=== PATIENT | female | born 1995 | race Caucasian/White ===

== ENCOUNTER 2021-10-10 07:59 | Inpatient (IN) ==
[2021-10-10] MEDS ORDERED: OXYTOCIN 30 UNITS/500 ML BAG IV PRN ×2 (08:37)
[2021-10-10] MEDS ORDERED: PENICILLIN G POTASSIUM 6 MU in DEXTROSE 5% 250 ML IV STA (08:41)
[2021-10-10 08:56] LABS: Hematocrit (blood only) 32.4 % (34.1-44.9); Hemoglobin 10.7 g/dl (12.0-16.0); Mean Corpuscular Hemoglobin 28.8 pg (25.0-34.0); Mean Corpuscular Volume 87.3 fL (80.0-100.0); Mean Platelet Volume 10.1 fL (9.4-12.3); Platelet Count 354 K/uL (130-400); RDW Coefficient of Variation 13.4 % (11.5-14.5); Red Blood Count 3.71 M/uL (3.93-5.22)
[2021-10-10] MEDS: LACTATED RINGER'S 1,000 ML IV PRN ×3 (09:33→19:33)
[2021-10-10] MEDS: PENICILLIN G POTASSIUM 3 MU in DEXTROSE 5% 100 ML IV PRN ×2 (14:02→17:55)
--- NOTE | 2021-10-10 15:18 | History & Physical Report ---
Date of Service October 10, 2021 Assessment & Plan (1) IUGR (intrauterine growth restriction) affecting care of mother: Plan: Admit. EFM/toco. Labs. IV fluids. COVID swab per protocol. PCN for GBS. Admission and Anticipated Discharge Date Admission Date: October 10, 2021 History of Present Illness Chief Complaint: IOL Primary Care Provider: SEGUNDO PCP 26yo @ 37 04/08, here for IOL. COVID POSITIVE 04/22/21 (SX STARTED 04/18/21) IUGR *Twice weekly NST/DVP@Dx *Weeklyl doppler@Dx--elevated 75-90% at 33 US *Growth US Q4wk @Dx *Deliver @39wks (unless abnml flow)--10/10 with alex[facility]ru. 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 normal no recs for MFM recs to take ASA 81mg - will start GBS Positive *Treat in labor Allergies Allergy/AdvReac Type Severity Reaction Status Date / Time No Known Allergies Allergy Verified 10/07/21 14:24 Home Medications Medication Instructions Recorded Confirmed Type prenat.vits,jesus,jaj-adpv-haisp 1 tab PO DAILY 03/29/21 10/10/21 History aspirin 81 mg tablet 81 mg PO DAILY 10/10/21 10/10/21 History Patient History Medical History Chicken pox COVID-19 Ectopic Elevated antinuclear antibody (FREDO) level Infertility Iron deficiency anemia MTHFR gene mutation Ovarian anomaly Use of leuprolide acetate (Lupron) Surgical History H/O laparoscopy Family History Father Diabetes Denies family history of Ovarian cancer Breast cancer Lung cancer Colorectal cancer Hypertension Social History (Updated 10/10/21 @ 08:29 by Maru Sears RN) Smoking Status: Never smoker Hx Alcohol Use: No Hx Substance Use: No Preferred Language: Ukrainian Communication Ability: Effective Hearing Ability: Normal Manager Purchasing Required: No Beliefs That Will Affect Care: None marital status: marital status details: Yarely Mann (29) [phone] Current Living Situation: Spouse Current Living Situation Comment: and 2 dogs current occupational status: employed current occupation: [employer] Other Information That Helps Us Care for You: No Feels Safe at Home: Yes Safety Concerns: Feels Safe At This Time Gender Identity: Female Assistive Devices: Glasses Review of Systems All systems reviewed & are unremarkable except as noted in HPI & below Physical Exam Constitutional: WD/WN, vitals as above Respiratory: normal respiratory effort, lungs clear to auscultation no respiratory distress Cardiovascular: Rate/Rhythm: regular rate and regular rhythm Gastrointestinal (Abdomen): Inspection/Auscultation: abdomen normal to inspection Percussion/Palpation: abdomen soft; abdomen nontender Gravid. No s/s chorio or abruption. Skin: no rashes, warm and dry Psychiatric: A+Ox3, euthymic affect Results & Data ([facility]) Vital Signs (Past 12 Hours) Vital Signs Temp Pulse Resp BP 10/10/21 14:56 75 129/84 10/10/21 13:57 74 128/80 10/10/21 12:56 81 116/71 10/10/21 12:30 36.9 C 10/10/21 11:56 83 138/87 10/10/21 10:55 81 141/84 H 10/10/21 10:40 80 142/86 H 10/10/21 10:25 79 119/75 10/10/21 10:11 79 119/75 10/10/21 09:55 85 114/56 L 10/10/21 09:40 78 20 132/69 10/10/21 09:06 86 133/78 10/10/21 09:01 36.8 C 10/10/21 08:09 83 151/85 H Monitoring External Monitor FHT Cat 1 Tocodynamometer occasional Coding Level of Care Code None Diagnoses IUGR (intrauterine growth restriction) affecting care of mother O36.5990
--- NOTE | 2021-10-10 15:20 | Labor Progress Brief Note ---
Date of Service October 10, 2021 Comfortable. FHT Cat 1 [place] Q 2-4 SVE 4-5/80/-1 AROM clear fluid Continue pitocin. OK for epidural if she desires. Assessment & Plan Admission and Anticipated Discharge Date Admission Date: October 10, 2021 Results & Data ([facility]) Vital Signs (Past 12 Hours) Vital Signs Temp Pulse Resp BP 10/10/21 14:56 75 129/84 10/10/21 13:57 74 128/80 10/10/21 12:56 81 116/71 10/10/21 12:30 36.9 C 10/10/21 11:56 83 138/87 10/10/21 10:55 81 141/84 H 10/10/21 10:40 80 142/86 H 10/10/21 10:25 79 119/75 10/10/21 10:11 79 119/75 10/10/21 09:55 85 114/56 L 10/10/21 09:40 78 20 132/69 10/10/21 09:06 86 133/78 10/10/21 09:01 36.8 C 10/10/21 08:09 83 151/85 H Coding Level of Care Code None
[2021-10-10] MEDS ORDERED: BUPIVACAINE 0.25% 30 ML VIAL ONE ×2 (16:05→22:57)
[2021-10-10] MEDS ORDERED: SODIUM CHLORIDE 0.9% INJ 10 ML VIAL ONE ×2 (16:05→22:57)
[2021-10-10] MEDS ORDERED: LIDOCAINE 2%/EPINEPHRINE 1:200,000 20 ML SDV ONE (16:05)
[2021-10-10] MEDS ORDERED: ePHEDrine sulfate 50 MG/ML AMP ONE (16:05)
[2021-10-10] MEDS ORDERED: fentaNYL citrate 100 MCG/2 ML VIAL ONE (16:05)
[2021-10-10] MEDS ORDERED: fentaNYL 2MCG/ML ROPIVACAINE 1.25MG/ML 100 ML BAG EPI ONE (16:06)
[2021-10-10] MEDS ORDERED: fentaNYL 2MCG/ML ROPIVACAINE 1.25MG/ML 100 ML BAG EPI PRN (16:28)
[2021-10-10] MEDS ORDERED: ONDANSETRON INJ 2 MG/ML 2 ML VIAL IV PRN (16:28)
[2021-10-10] MEDS ORDERED: NALBUPHINE HCL INJ 10 MG/ML AMP IV PRN (16:28)
[2021-10-10] MEDS ORDERED: NALOXONE HCL 0.4 MG/1 ML VIAL/CARP IV PRN (16:28)
[2021-10-10] MEDS ORDERED: ePHEDrine sulfate 50 MG/ML AMP IV PRN (16:28)
[2021-10-10] MEDS ORDERED: diphenhydrAMINE 50 MG/ML VIAL IV PRN (16:28)
[2021-10-10] MEDS ORDERED: NALOXONE HCL 1 MG in SODIUM CHLORIDE 0.9% 1000ML 1,000 ML IV PRN (16:28)
--- NOTE | 2021-10-10 16:32 | Anesthesiology Consultation ---
Date of Service October 10, 2021 Assessment & Plan Chart Review Chart Review: Patient NOT seen in Pre Admission Testing and Acceptable Risk for Labor Epidural Consults Requested none ASA ASA3 Proposed Anesthesia Anesthesia Type: Labor Epidural and CSE Risk / Benefits Reviewed With: PT / POA / Parent / Guardian, Accepts Plan and Informed Consent Obtained History Height/Weight Height: 5 ft 5 in Weight: 114.759 kg Allergies Allergy/AdvReac Type Severity Reaction Status Date / Time No Known Allergies Allergy Verified 10/07/21 14:24 Medications Home Medications Medication Instructions Recorded Confirmed Last Taken prenat.vits,jesus,xzo-rgqv-nezvt 1 tab PO DAILY 03/29/21 10/10/21 10/10/21 06:00 aspirin 81 mg tablet 81 mg PO DAILY 10/10/21 10/10/21 10/10/21 06:00 Active Medications Generic Name Dose Route Start Last Admin Trade Name Freq PRN Reason Stop Dose Admin Oxytocin 30 units in 500 mls @ 20 mls/hr 10/10/21 08:37 10/10/21 14:30 Pitocin IV 10/12/21 08:36 1.2 units/hr .Q24H PRN 20 mls/hr Labor Induction/Augmentation Titration Protocol 1.2 UNITS/HR Lactated Ringer's 1,000 mls @ 125 mls/hr 10/10/21 08:37 10/10/21 16:01 Lr IV 10/12/21 08:36 999 mls/hr .Q8H PRN Infusion L&D Protocol Protocol Penicillin G Potassium 3 mu/ 106 mls @ 100 mls/hr 10/10/21 11:37 10/10/21 14:02 Dextrose IV 10/20/21 11:36 100 mls/hr Q4H PRN Administration GBS(+) Until Delivery NPO Date Last Intake of Fluids: 10/10/21 Time Last Intake of Fluids: 15:00 Date Last Intake of Solids: 10/10/21 Time Last Intake of Solids: 09:00 Past Medical History Medical History Chicken pox COVID-19 Ectopic Elevated antinuclear antibody (FREDO) level Medically unexplained inflammation Infertility Iron deficiency anemia MTHFR gene mutation Obesity Ovarian anomaly Ovaries do not produce progesterone Use of leuprolide acetate (Lupron) Exercise / Class Metabolic Activity II 4-5 Yardwork/Stairs/Walk up hill Past Family History Family History Father Diabetes DM type 2 Denies family history of Ovarian cancer Breast cancer Lung cancer Colorectal cancer Hypertension Past Surgical History Surgical History H/O laparoscopy to remove a Past Anesthesia History No Hx of Anesthesia Complications and No Family Hx of Anesthesia Complications History of PONV No Hx of PONV and No Hx of Motion Sickness Social History Smoking Status: Never smoker Hx Alcohol Use: No Hx Substance Use: No substance use type: does not use Review of Systems no chest pain or sob Physical Exam Vital Signs Last Vital Signs Temp 36.7 C 10/10/21 16:26 Pulse 74 10/10/21 16:25 Resp 20 10/10/21 16:26 BP 143/97 H 10/10/21 15:56 Pulse Ox 100 10/10/21 16:25 Constitutional + obese ENMT Mouth: no TMJ abnormality Thyromental Distance: > or= 3.5 Finger Breadths Mallampati Class: II Neck normal visual inspection Respiratory normal respiratory effort Auscultation: lungs clear to auscultation bilaterally Cardiovascular Rate/Rhythm: regular rate and regular rhythm Musculoskeletal Spine: normal cervical ROM Neurologic moves all extremities Psychiatric Orientation: alert and oriented x 3 Testing Laboratory Results 10/10/21 08:46 Blood Type A Positive 10/10/21 08:46 Antibody Screen NEGATIVE 10/10/21 08:46
--- NOTE | 2021-10-10 19:13 | Labor Progress Brief Note ---
Date of Service October 10, 2021 Subjective Called to bedside for FHT decels. Now with recurrent FHT decels, to 90s with ctx. Recovery to baseline moderate variability between. Pitocin turned off, O2 applied, pt repositioned. IV fluids bolus. Cervix exam 8/100/0 (last exam 2 h ago was 5-6cm). Discussed resuscitative measures with patient, if not successful will need to proceed to delivery via . Assessment & Plan Admission and Anticipated Discharge Date Admission Date: October 10, 2021 Results & Data ([facility]) Vital Signs (Past 12 Hours) Vital Signs Temp Pulse Resp BP Pulse Ox 10/10/21 19:05 89 100 10/10/21 19:00 87 100 10/10/21 18:55 99 H 99 10/10/21 18:51 75 125/66 10/10/21 18:50 80 98 10/10/21 18:45 73 98 10/10/21 18:40 81 97 10/10/21 18:37 73 133/70 10/10/21 18:35 78 97 10/10/21 18:30 37.4 C 73 20 98 10/10/21 18:25 74 98 10/10/21 18:23 71 130/70 10/10/21 18:20 94 H 100 10/10/21 18:15 85 99 10/10/21 18:10 79 98 10/10/21 18:07 72 121/74 10/10/21 18:05 82 98 10/10/21 18:00 71 99 10/10/21 17:55 69 98 10/10/21 17:51 66 125/75 10/10/21 17:50 80 100 10/10/21 17:45 71 100 10/10/21 17:40 80 100 10/10/21 17:36 70 131/77 10/10/21 17:35 71 16 98 10/10/21 17:30 64 100 10/10/21 17:25 69 98 10/10/21 17:23 76 125/74 10/10/21 17:20 37 C 74 20 100 10/10/21 17:15 63 100 10/10/21 17:10 62 100 10/10/21 17:06 86 116/59 L 10/10/21 17:05 65 100 10/10/21 17:04 68 108/60 10/10/21 17:02 76 115/66 10/10/21 17:01 64 112/59 L 10/10/21 17:00 65 100 10/10/21 16:58 77 127/62 10/10/21 16:56 75 120/80 10/10/21 16:55 70 100 10/10/21 16:54 77 131/60 10/10/21 16:51 93 H 131/71 10/10/21 16:50 89 100 10/10/21 16:45 90 100 10/10/21 16:40 88 100 10/10/21 16:35 81 100 10/10/21 16:30 73 100 10/10/21 16:26 36.7 C 20 10/10/21 16:25 74 100 10/10/21 15:56 81 143/97 H 10/10/21 14:56 75 129/84 10/10/21 13:57 74 128/80 10/10/21 12:56 81 116/71 10/10/21 12:30 36.9 C 20 10/10/21 11:56 83 138/87 10/10/21 10:55 81 141/84 H 10/10/21 10:40 80 142/86 H 10/10/21 10:25 79 119/75 10/10/21 10:11 79 119/75 10/10/21 09:55 85 114/56 L 10/10/21 09:40 78 20 132/69 10/10/21 09:06 86 133/78 10/10/21 09:01 36.8 C 10/10/21 08:09 83 151/85 H Coding Level of Care Code None
[2021-10-10] MEDS ORDERED: NURSING L&D Epidural Breakthrough Pain Update ONE (22:08)
--- NOTE | 2021-10-10 22:26 | Labor Progress Brief Note ---
Date of Service October 10, 2021 Subjective Feeling more pressure/discomfort. FHT Cat 1 [place] Q 2-4 SVE anterior lip/100/+2 Will redose epidural, continue to reposition. Assessment & Plan Admission and Anticipated Discharge Date Admission Date: October 10, 2021 Results & Data ([facility]) Vital Signs (Past 12 Hours) Vital Signs Temp Pulse Resp BP Pulse Ox 10/10/21 22:21 122 H 91 10/10/21 22:20 96 H 98 10/10/21 22:15 101 H 99 10/10/21 22:10 92 H 98 10/10/21 22:06 100 H 141/84 H 10/10/21 22:05 108 H 99 10/10/21 22:00 102 H 100 10/10/21 21:57 88 94 10/10/21 21:55 88 98 10/10/21 21:51 88 114/56 L 10/10/21 21:50 81 98 10/10/21 21:45 97 H 97 10/10/21 21:40 97 H 97 10/10/21 21:36 97 H 119/72 10/10/21 21:35 99 H 97 10/10/21 21:31 18 10/10/21 21:30 100 H 98 10/10/21 21:25 101 H 97 10/10/21 21:21 96 H 129/72 10/10/21 21:20 99 H 97 10/10/21 21:15 101 H 96 10/10/21 21:10 100 H 97 10/10/21 21:07 90 117/67 10/10/21 21:05 96 H 97 10/10/21 21:01 36.9 C 18 10/10/21 21:00 98 H 97 10/10/21 20:55 93 H 98 10/10/21 20:51 88 120/67 10/10/21 20:50 90 97 10/10/21 20:45 88 98 10/10/21 20:43 18 10/10/21 20:40 95 H 98 10/10/21 20:37 94 H 127/73 10/10/21 20:35 108 H 99 10/10/21 20:30 90 97 10/10/21 20:25 90 97 10/10/21 20:21 88 122/77 10/10/21 20:20 89 97 10/10/21 20:15 92 H 98 10/10/21 20:10 87 97 10/10/21 20:07 97 H 121/76 10/10/21 20:05 89 98 10/10/21 20:00 90 97 10/10/21 19:55 84 96 10/10/21 19:52 83 124/65 10/10/21 19:50 91 H 96 10/10/21 19:45 91 H 97 10/10/21 19:40 89 97 10/10/21 19:36 88 97/60 L 10/10/21 19:35 84 97 10/10/21 19:30 88 100 10/10/21 19:25 89 100 10/10/21 19:21 96 H 100/56 L 10/10/21 19:20 92 H 100 10/10/21 19:15 86 100 10/10/21 19:10 85 100 10/10/21 19:07 80 109/58 L 10/10/21 19:05 89 100 10/10/21 19:02 36.9 C 18 10/10/21 19:00 87 100 10/10/21 18:55 99 H 99 10/10/21 18:51 75 125/66 10/10/21 18:50 80 98 10/10/21 18:45 73 98 10/10/21 18:40 81 97 10/10/21 18:37 73 133/70 10/10/21 18:35 78 97 10/10/21 18:30 37.4 C 73 20 98 10/10/21 18:25 74 98 10/10/21 18:23 71 130/70 10/10/21 18:20 94 H 100 10/10/21 18:15 85 99 10/10/21 18:10 79 98 10/10/21 18:07 72 121/74 10/10/21 18:05 82 98 10/10/21 18:00 71 99 10/10/21 17:55 69 98 10/10/21 17:51 66 125/75 10/10/21 17:50 80 100 10/10/21 17:45 71 100 10/10/21 17:40 80 100 10/10/21 17:36 70 131/77 10/10/21 17:35 71 16 98 10/10/21 17:30 64 100 10/10/21 17:25 69 98 10/10/21 17:23 76 125/74 10/10/21 17:20 37 C 74 20 100 10/10/21 17:15 63 100 10/10/21 17:10 62 100 10/10/21 17:06 86 116/59 L 10/10/21 17:05 65 100 10/10/21 17:04 68 108/60 10/10/21 17:02 76 115/66 10/10/21 17:01 64 112/59 L 10/10/21 17:00 65 100 10/10/21 16:58 77 127/62 10/10/21 16:56 75 120/80 10/10/21 16:55 70 100 10/10/21 16:54 77 131/60 10/10/21 16:51 93 H 131/71 10/10/21 16:50 89 100 10/10/21 16:45 90 100 10/10/21 16:40 88 100 10/10/21 16:35 81 100 10/10/21 16:30 73 100 10/10/21 16:26 36.7 C 20 10/10/21 16:25 74 100 10/10/21 15:56 81 143/97 H 10/10/21 14:56 75 129/84 10/10/21 13:57 74 128/80 10/10/21 12:56 81 116/71 10/10/21 12:30 36.9 C 20 10/10/21 11:56 83 138/87 10/10/21 10:55 81 141/84 H 10/10/21 10:40 80 142/86 H Coding Level of Care Code None
[2021-10-11] MEDS: PENICILLIN G POTASSIUM 3 MU in DEXTROSE 5% 100 ML IV PRN (00:15)
--- NOTE | 2021-10-11 00:19 | Labor Progress Brief Note ---
Date of Service October 11, 2021 Subjective Beginning to feel pressure. FHT Cat 1, [place] Q 2-3 SVE complete/100 per RN exam Will start pushing. Assessment & Plan Admission and Anticipated Discharge Date Admission Date: October 10, 2021 Results & Data ([facility]) Vital Signs (Past 12 Hours) Vital Signs Temp Pulse Resp BP Pulse Ox 10/11/21 00:15 91 H 97 10/11/21 00:10 92 H 98 10/11/21 00:06 93 H 116/68 10/11/21 00:05 90 100 10/11/21 00:00 97 H 98 10/10/21 23:55 89 98 10/10/21 23:51 92 H 122/69 10/10/21 23:50 92 H 98 10/10/21 23:45 93 H 100 10/10/21 23:40 106 H 100 10/10/21 23:36 157 H 136/64 10/10/21 23:35 100 H 100 10/10/21 23:32 36.9 C 18 10/10/21 23:30 92 H 97 10/10/21 23:25 95 H 96 10/10/21 23:21 94 H 125/84 10/10/21 23:20 88 97 10/10/21 23:15 84 96 10/10/21 23:10 107 H 99 10/10/21 23:06 111 H 124/92 10/10/21 23:05 101 H 98 10/10/21 23:00 108 H 96 10/10/21 22:55 101 H 98 10/10/21 22:51 103 H 119/88 10/10/21 22:50 101 H 98 10/10/21 22:45 90 96 10/10/21 22:40 98 H 97 10/10/21 22:37 86 133/78 10/10/21 22:35 93 H 97 10/10/21 22:30 91 H 98 10/10/21 22:25 95 H 98 10/10/21 22:21 122 H 91 10/10/21 22:20 96 H 98 10/10/21 22:15 101 H 99 10/10/21 22:10 92 H 98 10/10/21 22:06 100 H 141/84 H 10/10/21 22:05 108 H 99 10/10/21 22:00 102 H 100 10/10/21 21:57 88 94 10/10/21 21:55 88 98 10/10/21 21:51 88 114/56 L 10/10/21 21:50 81 98 10/10/21 21:45 97 H 97 10/10/21 21:40 97 H 97 10/10/21 21:36 97 H 119/72 10/10/21 21:35 99 H 97 10/10/21 21:31 18 10/10/21 21:30 100 H 98 10/10/21 21:25 101 H 97 10/10/21 21:21 96 H 129/72 10/10/21 21:20 99 H 97 10/10/21 21:15 101 H 96 10/10/21 21:10 100 H 97 10/10/21 21:07 90 117/67 10/10/21 21:05 96 H 97 10/10/21 21:01 36.9 C 18 10/10/21 21:00 98 H 97 10/10/21 20:55 93 H 98 10/10/21 20:51 88 120/67 10/10/21 20:50 90 97 10/10/21 20:45 88 98 10/10/21 20:43 18 10/10/21 20:40 95 H 98 10/10/21 20:37 94 H 127/73 10/10/21 20:35 108 H 99 10/10/21 20:30 90 97 10/10/21 20:25 90 97 10/10/21 20:21 88 122/77 10/10/21 20:20 89 97 10/10/21 20:15 92 H 98 10/10/21 20:10 87 97 10/10/21 20:07 97 H 121/76 10/10/21 20:05 89 98 10/10/21 20:00 90 97 10/10/21 19:55 84 96 10/10/21 19:52 83 124/65 10/10/21 19:50 91 H 96 10/10/21 19:45 91 H 97 10/10/21 19:40 89 97 10/10/21 19:36 88 97/60 L 10/10/21 19:35 84 97 10/10/21 19:30 88 100 10/10/21 19:25 89 100 10/10/21 19:21 96 H 100/56 L 10/10/21 19:20 92 H 100 10/10/21 19:15 86 100 10/10/21 19:10 85 100 10/10/21 19:07 80 109/58 L 10/10/21 19:05 89 100 10/10/21 19:02 36.9 C 18 10/10/21 19:00 87 100 10/10/21 18:55 99 H 99 10/10/21 18:51 75 125/66 10/10/21 18:50 80 98 10/10/21 18:45 73 98 10/10/21 18:40 81 97 10/10/21 18:37 73 133/70 10/10/21 18:35 78 97 10/10/21 18:30 37.4 C 73 20 98 10/10/21 18:25 74 98 10/10/21 18:23 71 130/70 10/10/21 18:20 94 H 100 10/10/21 18:15 85 99 10/10/21 18:10 79 98 10/10/21 18:07 72 121/74 10/10/21 18:05 82 98 10/10/21 18:00 71 99 10/10/21 17:55 69 98 10/10/21 17:51 66 125/75 10/10/21 17:50 80 100 10/10/21 17:45 71 100 10/10/21 17:40 80 100 10/10/21 17:36 70 131/77 10/10/21 17:35 71 16 98 10/10/21 17:30 64 100 10/10/21 17:25 69 98 10/10/21 17:23 76 125/74 10/10/21 17:20 37 C 74 20 100 10/10/21 17:15 63 100 10/10/21 17:10 62 100 10/10/21 17:06 86 116/59 L 10/10/21 17:05 65 100 10/10/21 17:04 68 108/60 10/10/21 17:02 76 115/66 10/10/21 17:01 64 112/59 L 10/10/21 17:00 65 100 10/10/21 16:58 77 127/62 10/10/21 16:56 75 120/80 10/10/21 16:55 70 100 10/10/21 16:54 77 131/60 10/10/21 16:51 93 H 131/71 10/10/21 16:50 89 100 10/10/21 16:45 90 100 10/10/21 16:40 88 100 10/10/21 16:35 81 100 10/10/21 16:30 73 100 10/10/21 16:26 36.7 C 20 10/10/21 16:25 74 100 10/10/21 15:56 81 143/97 H 10/10/21 14:56 75 129/84 10/10/21 13:57 74 128/80 10/10/21 12:56 81 116/71 10/10/21 12:30 36.9 C 20 Coding Level of Care Code None
--- NOTE | 2021-10-11 02:32 | Delivery Summary ---
Vaginal Delivery Summary Date of Service October 11, 2021 Vaginal Delivery Summary and 2nd Degree LAC Vaginal Delivery Summary: Pre-delivery diagnoses: 26yo @ 39 2/7, IUGR, IVF conception, GBS+, MTHFR, FREDO+ Post-delivery diagnoses: same Procedure: spontaneous vaginal delivery Surgeon: Ana Maria Quevedo DO Complications: none Findings: Viable female . Apgars: 8/9. Weight pending, please see nursery records. Estimated blood loss: 300ml Description of delivery: The patient progressed to complete with epidural anesthesia. She then began to push. She spontaneously vaginally delivered a viable from the cephalic presentation. The head delivered in SHARON position. No nuchal. The anterior shoulder delivered, followed by the posterior shoulder, followed by the body. The baby was placed on mother's abdomen and a spontaneous cry was heard. Delayed cord clamping was employed, and the cord was doubly clamped and cut. Cord blood was obtained. The placenta was delivered spontaneously intact with a 3-vessel cord. The uterus and vagina were swept of clots and debris. IV pitocin was given. The uterus became firm. The cervix, vagina, and perineum were inspected and a 2nd degree perineal laceration with bilateral sulcal tears noted and repaired with 3-0 vicryl in standard fashion. Excellent hemostasis was observed. The mother and baby are recovering in stable and good condition in the room. Sponge, needle and instrument counts were correct x 2. Ana Maria Quevedo DO [facility] Vaginal Delivery Charge Vaginal Delivery Codes: 03938 global code for the antepartum, delivery, and post- Delivery Type Details: and 2nd Degree LAC
[2021-10-11] MEDS ORDERED: BENZOCAINE 20% AER SPR 82.5 GM CAN EXT PRN (02:41)
[2021-10-11] MEDS ORDERED: ACETAMINOPHEN 325 MG TAB PO PRN (02:41)
[2021-10-11] MEDS ORDERED: DIPHTHERIA/TETANUS/PERTUSSIS 0.5 ML SYR/VIAL IM ONE (02:41)
[2021-10-11] MEDS ORDERED: HYDROCORTISONE ACETATE 25 MG SUPP PR PRN (02:41)
[2021-10-11] MEDS ORDERED: OXYTOCIN 30 UNITS/500 ML BAG IV PRN (02:41)
[2021-10-11] MEDS ORDERED: oxyCODONE/ACETAMINOPHEN 5mg/325mg TAB PO PRN (02:41)
[2021-10-11] MEDS: IBUPROFEN 600 MG TAB PO PRN ×3 (04:02→20:41)
--- NOTE | 2021-10-11 05:13 | Obstetrical Progress Note ---
Date of Service <Geneva Reddy DO - Last Filed: 10/11/21 06:18> October 11, 2021 Assessment & Plan <Geneva Reddy DO - Last Filed: 10/11/21 06:18> (1) Status post vaginal delivery: continue OOB, ambulation, diet as tolerated <Ana Maria Bjorn Quevedo, DO - Last Filed: 10/11/21 07:54> (1) Status post vaginal delivery: Subjective <Geneva Reddy, DO - Last Filed: 10/11/21 06:18> Malou is a 26 y/o female who is now PPD #0 following spontaneous vaginal delivery at 39 2/7. Reports feeling well overall this morning. Mild abdominal cramping & 5/10 pain well managed on analgesics. Voiding. Tolerating meals overnight and able to ambulate some. Is passing gas,but no bowel movements. Some persistent lochia with some improvement this morning. Breast/Bottle feeding. Review of Systems Denies fever, chills, sweats Denies shortness of breath, difficulty breathing, chest pain, palpitations, chest pressure. Denies breast pain. Denies dysuria. Denies headache or changes in vision. Physical Exam <Geneva Reddy DO - Last Filed: 10/11/21 06:18> General: Alert, oriented. No acute distress. Cardiac: Regular rate and rhythm, no murmurs/rubs/gallops. Respiratory: Clear to auscultation bilaterally a/p, no wheezes/rales/rhonchi. No increased work of breathing. Symmetrical chest rise. No respiratory distress. Abdomen: Soft, nontender, nondistended. Bowel sounds present. Uterus: Uterine fundus firm. Lower Extremities: No lower extremity edema or swelling. No deep calf pain. Cielo's negative bilaterally. Results & Data ([facility]) <Geneva Reddy DO - Last Filed: 10/11/21 06:18> Vital Signs (Past 12 Hours) Vital Signs Temp Pulse Resp BP Pulse Ox 10/11/21 04:30 93 H 18 110/64 10/11/21 04:14 93 H 114/71 10/11/21 03:59 96 H 120/73 10/11/21 03:45 88 126/75 10/11/21 03:30 18 10/11/21 03:29 106 H 110/62 10/11/21 03:15 37.1 C 18 10/11/21 03:14 89 108/58 L 10/11/21 03:00 18 10/11/21 02:59 101 H 118/68 10/11/21 02:45 88 18 123/72 10/11/21 02:30 36.8 C 18 10/11/21 02:29 102 H 146/86 H 10/11/21 02:22 102 H 115/62 10/11/21 02:20 95 H 96 10/11/21 02:15 107 H 98 10/11/21 02:10 105 H 98 10/11/21 02:05 151 H 96 10/11/21 02:00 110 H 99 10/11/21 01:55 100 H 98 10/11/21 01:51 83 113/56 L 10/11/21 01:50 86 98 10/11/21 01:49 106 H 94 10/11/21 01:45 100 H 99 10/11/21 01:42 123 H 93 10/11/21 01:40 101 H 97 10/11/21 01:37 96 H 123/63 10/11/21 01:35 97 H 97 10/11/21 01:30 36.8 C 97 H 18 96 10/11/21 01:25 91 H 94 10/11/21 01:24 90 94 10/11/21 01:21 93 H 121/75 10/11/21 01:20 99 H 97 10/11/21 01:15 90 95 10/11/21 01:10 95 H 97 10/11/21 01:06 90 116/74 10/11/21 01:05 94 H 97 10/11/21 01:00 91 H 98 10/11/21 00:55 95 H 18 98 10/11/21 00:51 100 H 112/66 10/11/21 00:50 105 H 98 10/11/21 00:45 92 H 99 10/11/21 00:40 112 H 100 10/11/21 00:36 98 H 122/77 10/11/21 00:35 102 H 99 10/11/21 00:30 106 H 99 10/11/21 00:25 103 H 97 10/11/21 00:21 99 H 120/76 10/11/21 00:20 88 97 10/11/21 00:15 91 H 97 10/11/21 00:10 92 H 98 10/11/21 00:06 93 H 116/68 10/11/21 00:05 90 100 10/11/21 00:00 97 H 98 10/10/21 23:55 89 98 10/10/21 23:51 92 H 122/69 10/10/21 23:50 92 H 98 10/10/21 23:45 93 H 100 10/10/21 23:40 106 H 100 10/10/21 23:36 157 H 136/64 10/10/21 23:35 100 H 100 10/10/21 23:32 36.9 C 18 10/10/21 23:30 92 H 97 10/10/21 23:25 95 H 96 10/10/21 23:21 94 H 125/84 10/10/21 23:20 88 97 10/10/21 23:15 84 96 10/10/21 23:10 107 H 99 10/10/21 23:06 111 H 124/92 10/10/21 23:05 101 H 98 10/10/21 23:00 108 H 96 10/10/21 22:55 101 H 98 10/10/21 22:51 103 H 119/88 10/10/21 22:50 101 H 98 10/10/21 22:45 90 96 10/10/21 22:40 98 H 97 10/10/21 22:37 86 133/78 10/10/21 22:35 93 H 97 10/10/21 22:30 91 H 98 10/10/21 22:25 95 H 98 10/10/21 22:21 122 H 91 10/10/21 22:20 96 H 98 10/10/21 22:15 101 H 99 10/10/21 22:10 92 H 98 10/10/21 22:06 100 H 141/84 H 10/10/21 22:05 108 H 99 10/10/21 22:00 102 H 100 10/10/21 21:57 88 94 10/10/21 21:55 88 98 10/10/21 21:51 88 114/56 L 10/10/21 21:50 81 98 10/10/21 21:45 97 H 97 10/10/21 21:40 97 H 97 10/10/21 21:36 97 H 119/72 10/10/21 21:35 99 H 97 10/10/21 21:31 18 10/10/21 21:30 100 H 98 10/10/21 21:25 101 H 97 10/10/21 21:21 96 H 129/72 10/10/21 21:20 99 H 97 10/10/21 21:15 101 H 96 10/10/21 21:10 100 H 97 10/10/21 21:07 90 117/67 10/10/21 21:05 96 H 97 10/10/21 21:01 36.9 C 18 10/10/21 21:00 98 H 97 10/10/21 20:55 93 H 98 10/10/21 20:51 88 120/67 10/10/21 20:50 90 97 10/10/21 20:45 88 98 10/10/21 20:43 18 10/10/21 20:40 95 H 98 10/10/21 20:37 94 H 127/73 10/10/21 20:35 108 H 99 10/10/21 20:30 90 97 10/10/21 20:25 90 97 10/10/21 20:21 88 122/77 10/10/21 20:20 89 97 10/10/21 20:15 92 H 98 10/10/21 20:10 87 97 10/10/21 20:07 97 H 121/76 10/10/21 20:05 89 98 10/10/21 20:00 90 97 10/10/21 19:55 84 96 10/10/21 19:52 83 124/65 10/10/21 19:50 91 H 96 10/10/21 19:45 91 H 97 10/10/21 19:40 89 97 10/10/21 19:36 88 97/60 L 10/10/21 19:35 84 97 10/10/21 19:30 88 100 10/10/21 19:25 89 100 10/10/21 19:21 96 H 100/56 L 10/10/21 19:20 92 H 100 10/10/21 19:15 86 100 10/10/21 19:10 85 100 10/10/21 19:07 80 109/58 L 10/10/21 19:05 89 100 10/10/21 19:02 36.9 C 18 10/10/21 19:00 87 100 10/10/21 18:55 99 H 99 10/10/21 18:51 75 125/66 10/10/21 18:50 80 98 10/10/21 18:45 73 98 10/10/21 18:40 81 97 10/10/21 18:37 73 133/70 10/10/21 18:35 78 97 10/10/21 18:30 37.4 C 73 20 98 10/10/21 18:25 74 98 10/10/21 18:23 71 130/70 10/10/21 18:20 94 H 100 10/10/21 18:15 85 99 10/10/21 18:10 79 98 10/10/21 18:07 72 121/74 10/10/21 18:05 82 98 10/10/21 18:00 71 99 10/10/21 17:55 69 98 10/10/21 17:51 66 125/75 10/10/21 17:50 80 100 10/10/21 17:45 71 100 10/10/21 17:40 80 100 10/10/21 17:36 70 131/77 10/10/21 17:35 71 16 98 10/10/21 17:30 64 100 10/10/21 17:25 69 98 10/10/21 17:23 76 125/74 10/10/21 17:20 37 C 74 20 100 10/10/21 17:15 63 100 10/10/21 17:10 62 100 Laboratory Results 10/10/21 10/10/21 10/10/21 Range/Units 08:50 08:46 08:46 WBC 12.10 H (4.8-10.8) K/ul RBC 3.71 L (3.93-5.22) M/uL Hgb 10.7 L (12.0-16.0) g/dl Hct 32.4 L (34.1-44.9) % MCV 87.3 (80.0-100.0) fL MCH 28.8 (25.0-34.0) pg MCHC 33.0 (32.0-36.0) g/dL RDW Std Deviation 43.0 (36.4-46.3) fL RDW Coeff of Errol 13.4 (11.5-14.5) % Plt Count 354 (130-400) K/uL MPV 10.1 (9.4-12.3) fL SARS-CoV-2, RNA, NAAT NEGATIVE (NEGATIVE) Blood Type A Positive Antibody Screen NEGATIVE <Ana Maria Quevedo, - Last Filed: 10/11/21 07:54> Co-Signing Physician Notes Resident Physician Supervision Note: I was present with Dr. Reddy during the history and exam. I discussed the case with the resident and agree with the findings and plan as documented in the note. Any exceptions or clarifications are listed here: PPD#0 doing well. Routine care. Documented By: Ana Maria Quevedo DO Resident Activity Tracking <Geneva Reddy, - Last Filed: 10/11/21 06:18> Resident Involvement: Resident Care Provided Care Provided: OB Delivery (Post )
[2021-10-11] MEDS: DOCUSATE SODIUM 100 MG CAP PO SCH ×2 (09:13→20:41)
[2021-10-11] MEDS: PRENATAL VITAMIN 1 TAB PO SCH (09:13)
--- NOTE | 2021-10-11 10:00 | Anesthesia Procedure Note ---
Date of Service October 11, 2021 Anesthesia Post Epidural Note Vital Signs Vital Signs: Temp Pulse Resp BP Pulse Ox 36.7 C 71 18 132/89 97 10/11/21 07:50 10/11/21 07:50 10/11/21 07:50 10/11/21 07:50 10/11/21 07:50 Pain Intensity Abdomen: Pain Intensity: 4 Notes Mental Status: alert / awake / arousable Nausea / Vomiting: adequately controlled Pain: adequately controlled Airway Patency, RR, SpO2: stable & adequate BP & HR: stable & adequate Hydration State: stable & adequate Neuraxial Anesthesia: was administered and sensory block is resolving Anesthetic Complications: no major complications apparent and Pt Satisfied with anesthetic care Epidural: Removed without complications and With tip intact
--- NOTE | 2021-10-12 05:37 | Obstetrical Progress Note ---
Date of Service <Geneva JacksonMatteo Barry - Last Filed: 10/12/21 06:41> October 12, 2021 Assessment & Plan <Geneva Reddy - Last Filed: 10/12/21 06:41> (1) Status post vaginal delivery: continue OOB, ambulation, diet as tolerated <Bisi Toney MD, FACOG - Last Filed: 10/12/21 07:59> (1) Status post vaginal delivery: Day #:: 1 Subjective <Geneva S. DO Barry - Last Filed: 10/12/21 06:41> Malou is a 26 y/o female who is now PPD #1 following spontaneous vaginal delivery at 39 2/7. Reports feeling well overall this morning. Mild abdominal cramping pain well managed on analgesics. Voiding. Tolerating full diet and able to ambulate some. Is passing gas and had bowel movements. Some persistent lochia with some improvement this morning. Breast/Bottle feeding. Review of Systems Denies fever, chills, sweats Denies shortness of breath, difficulty breathing, chest pain, palpitations, chest pressure. Denies breast pain. Denies dysuria. Denies headache or changes in vision. Physical Exam <Geneva SMatteo Barry - Last Filed: 10/12/21 06:41> General: Alert, oriented. No acute distress. Cardiac: Regular rate and rhythm, no murmurs/rubs/gallops. Respiratory: Clear to auscultation bilaterally a/p, no wheezes/rales/rhonchi. No increased work of breathing. Symmetrical chest rise. No respiratory distress. Abdomen: Soft, nontender, nondistended. Bowel sounds present. Uterus: Uterine fundus firm. Lower Extremities: No lower extremity edema or swelling. No deep calf pain. Cielo's negative bilaterally. Results & Data ([facility]) <Geneva SMatteo Reddy DO - Last Filed: 10/12/21 06:41> Vital Signs (Past 12 Hours) Vital Signs Temp Pulse Resp BP Pulse Ox O2 Del Method 10/11/21 23:55 36.7 C 74 20 133/86 98 Room Air 10/11/21 20:40 36.7 C 83 20 142/90 H 98 Room Air <Bisi Toney MD, FACOG - Last Filed: 10/12/21 07:59> Co-Signing Physician Notes Resident Physician Supervision Note: I was present with Dr. Reddy during the history and exam. I discussed the case with the resident and agree with the findings and plan as documented in the note. Any exceptions or clarifications are listed here: stable, routine care. desires dc home. was adequately treated for gbs. will prepare for dc. instructions reviewed. plan 6wk pp check. eating, voiding, ambulating, good pain control. breast feeding. rh pos, ri. adb soft ff 2 down, nt. ext nt calves. Documented By: Bisi Toney MD, FACOG Resident Activity Tracking <Geneva Reddy DO - Last Filed: 10/12/21 06:41> Resident Involvement: Resident Care Provided Care Provided: OB Delivery (Post )
[2021-10-12 07:05] LABS: Hematocrit (blood only) 30.4 % (34.1-44.9); Hemoglobin 9.9 g/dl (12.0-16.0)
[2021-10-12] MEDS: DOCUSATE SODIUM 100 MG CAP PO SCH (08:12)
[2021-10-12] MEDS: IBUPROFEN 600 MG TAB PO PRN (08:12)
[2021-10-12] MEDS: PRENATAL VITAMIN 1 TAB PO SCH (08:12)
[2021-10-12] MEDS ORDERED: bisacodyL 5 MG TABEC PO SCH (20:00)
[2021-10-13] MEDS ORDERED: bisacodyL 10 MG SUPP PR PRN
== END 2021-10-12 13:30 | disposition home or self-care (01) | DRG 807 ==
LOC: 4S1 07:59 → 4E2 10-11 04:56